=== PATIENT | male | born 1960 | race Caucasian/White ===

== ENCOUNTER 2019-02-05 23:48 | Inpatient (IN) ==
[2019-02-05] MEDS ORDERED: SOLU-MEDROL IV ONE (23:59)
[2019-02-06] MEDS ORDERED: ATROVENT NEB INH ONE ×2 (00:03→01:14)
[2019-02-06] MEDS ORDERED: MAGNESIUM SULFATE 2 GM/S.W.I. 2 GM/50 ML IVPB IV ONE (00:03)
--- NOTE | 2019-02-06 00:05 | PROVIDER DOCUMENTATION ---
HPI-Respiratory General - General Chief Complaint: Allergic Reaction Stated Complaint: sob Time Seen by Provider: 02/06/19 00:00 Source: patient Allergies/Adverse Reactions: Patient Allergies Allergy/AdvReac Type Severity Reaction Status Date / Time No Known Allergies Allergy Verified 02/06/19 00:00 Home Medications: Home Medication List Medication Instructions Recorded Confirmed Last Taken Type PRAVAstatin [Pravachol] 40 mg PO QHS 12/14/12 01/28/19 12/13/12 20:00 History Ciprofloxacin HCl [Cipro] 500 mg PO BID #20 tab 01/27/19 Unknown Rx Phenazopyridine [Pyridium] 100 mg PO TID #30 tab 01/27/19 Unknown Rx Amlodipine [Norvasc] 10 mg PO QAM 01/28/19 01/28/19 Unknown History Aspirin [Becka Chewable Aspirin] 81 mg PO QAM 01/28/19 01/28/19 Unknown History Labetalol [Trandate] 100 mg PO BID 01/28/19 01/28/19 Unknown History Lisinopril 40 mg PO QAM 01/28/19 01/28/19 Unknown History Metformin [Glucophage] 500 mg PO BID 01/28/19 01/28/19 Unknown History - History of Present Illness-Resp Nature of Presenting Problem: 58 yr old M, with hx of COPD, presents after acute respiratory distress de veloped earlier this evening while he was cleaning out his cat's litter box with ammonia. The pt reports SOB, cough, no pain with inspiration. When he presented, the pt also reported he had been having difficulty with urination for the past week, noting it was very hard to void, and when he was able to, the urine was dark in color. Pt reports worsening lower suprapubic pain and fullness for the past week. Quality of Pain: reports: other (pt's pain is not respiratory in nature - he has suprapubic pain) Onset/Duration: reports: 1 hour ago Timing: reports: still present Current Respiratory Medication Therapy: Initiated A/A nebulizer Similar Symptoms Previously?: Yes (remote hx of similar respiratory event) Review of Systems - Adult - REVIEW OF SYSTEMS - ADULT Constitutional: reports: no symptoms reported Eyes: reports: no symptoms reported Ears, Nose, Mouth & Throat: reports: no symptoms reported Cardiovascular: reports: no symptoms reported Respiratory: reports: cough, shortness of breath Gastrointestinal: reports: no symptoms reported Genitourinary: reports: hematuria, urinary retention Musculoskeletal: reports: no symptoms reported Integumentary: reports: no symptoms reported Neurological: reports: no symptoms reported Psychiatric: reports: no symptoms reported Past History - Adult - PAST MEDICAL HISTORY-ADULT Review of Records: reports: Old Records Reviewed, Nursing Assessment Review Respiratory: reports: COPD Physical Exam-General - PHYSICAL EXAM-ADULT Initial Vital Signs Reviewed: Yes - CONSTITUTIONAL General Appearance: alert, moderate distress, anxious - HEAD, EARS, NOSE, MOUTH & THROAT HENMT: normocephalic/atraumatic - RESPIRATORY Respiratory: decreased breath sounds, other (difficult to appreciate air entry bilaterally) - CARDIOVASCULAR Cardiovascular: tachycardia - GASTROINTESTINAL (ABDOMEN) Abdominal Exam: tenderness (suprapubic) - SKIN Integumentary: diaphoresis - PSYCHIATRIC Psych/Mental Status: oriented x 3, anxious - HEART Score HEART Score: History: Slightly Suspicious HEART Score: Age: 45-65 Years HEART Score: Risk Factors for Atherosclerotic Disease: 1 or 2 Risk Factors HEART Score: Troponin: < or = Normal Limit Progress - PLAN OF CARE/RESULTS Progress/Plan/Lab Results: Vital Signs - 8 hr 02/05/19 23:59 02/06/19 00:01 02/06/19 00:03 Pulse Rate Respiratory Rate Blood Pressure 144/101 156/135 O2 Sat by Pulse Oximetry 85 L 95 97 02/06/19 00:29 Pulse Rate 99 H Respiratory Rate 22 Blood Pressure O2 Sat by Pulse Oximetry 98 Laboratory Results - last 24 hr 02/06/19 02/06/19 02/06/19 00:19 00:19 01:01 WBC 26.38 H RBC 5.04 Hgb 13.4 L Hct 42.4 MCV 84.1 MCH 26.6 L MCHC 31.6 L RDW Std Deviation 14.9 H Plt Count 472 H MPV 11.2 H Immature Gran % (Auto) 7.4 H Neut % (Auto) 78.9 H Lymph % (Auto) 6.6 L [place] % (Auto) 6.4 Eos % (Auto) 0.4 Baso % (Auto) 0.3 Immature Gran # (Auto) 1.96 H Neut # (Auto) 20.79 H Lymph # (Auto) 1.75 [place] # (Auto) 1.70 H Eos # (Auto) 0.10 Baso # (Auto) 0.08 Segmented Neutrophils 80 H Band Neutrophils 4 H Lymphocytes 11 L Monocytes 2 Eosinophils 2 Metamyelocytes 1.0 PT INR PTT (Actin FS) Specimen Type Sample Site pH pCO2 pO2 HCO3 Base Excess Oxyhemoglobin ABG O2 Sat (Calculated) ABG O2 Saturation ABG Carboxyhemoglobin ABG Methemoglobin Greg Test VBG pH VBG pCO2 VBG pO2 VBG HCO3 VBG O2 Saturation VBG Base Excess VBG Lactate A-a O2 Difference Total Hemoglobin Lactate Blood Gas Modality FiO2 % Sodium Potassium Chloride Carbon Dioxide Anion Gap BUN Creatinine Estimated GFR/1.73 m2 BUN/Creatinine Ratio Glucose Calculated Osmolality Calcium Magnesium Total Bilirubin AST ALT Alkaline Phosphatase Creatine Kinase Creatine Kinase Index CK-MB (CK-2) Troponin T Total Protein Albumin Globulin Albumin/Globulin Ratio Plasma Lactate Urine Source CATH Urine Color BROWN Urine Turbidity TURBID Urine pH 5.5 Ur Specific [place] 1.013 Urine Protein 50 A Ur Glucose (Stick) NEGATIVE Ur Ketones (Stick) NEGATIVE Urine Blood MODERATE A Urine Nitrite NEGATIVE Urine Bilirubin NEGATIVE Urobilinogen Dipstick NORMAL Urine Leukocytes TRACE A Urine WBC (Auto) 10-20 A Urine RBC (Auto) TNTC A U Epithel Cells (Auto) <10 Urine Bacteria (Auto) NEGATIVE Urine Crystals NONE SEEN Small Round Cells NONE SEEN Urine Casts NONE SEEN Urine Yeast-like Cells NONE SEEN Urine Opiates Screen NONE DETECTED Ur Oxycodone Screen NONE DETECTED Ur Methadone, Qual NONE DETECTED Ur Barbiturates Screen NONE DETECTED Ur Phencyclidine Scrn NONE DETECTED Ur Amphetamines Screen NONE DETECTED U Benzodiazepines Scrn NONE DETECTED Urine Cocaine Screen NONE DETECTED U Cannabinoids Screen NONE DETECTED Blood Type Antibody Screen 02/06/19 02/06/19 02/06/19 01:01 01:01 01:01 WBC RBC Hgb Hct MCV MCH MCHC RDW Std Deviation Plt Count MPV Immature Gran % (Auto) Neut % (Auto) Lymph % (Auto) [place] % (Auto) Eos % (Auto) Baso % (Auto) Immature Gran # (Auto) Neut # (Auto) Lymph # (Auto) [place] # (Auto) Eos # (Auto) Baso # (Auto) Segmented Neutrophils Band Neutrophils Lymphocytes Monocytes Eosinophils Metamyelocytes PT 17.7 H INR 1.43 PTT (Actin FS) 33.0 Specimen Type Sample Site pH pCO2 pO2 HCO3 Base Excess Oxyhemoglobin ABG O2 Sat (Calculated) ABG O2 Saturation ABG Carboxyhemoglobin ABG Methemoglobin Greg Test VBG pH VBG pCO2 VBG pO2 VBG HCO3 VBG O2 Saturation VBG Base Excess VBG Lactate A-a O2 Difference Total Hemoglobin Lactate Blood Gas Modality FiO2 % Sodium 136 Potassium 7.3 H* Chloride 88 L Carbon Dioxide 3 L Anion Gap 45 BUN 142 H Creatinine 15.6 H* Estimated GFR/1.73 m2 3 BUN/Creatinine Ratio 9 Glucose 92 Calculated Osmolality 315 Calcium 7.9 L Magnesium 2.4 Total Bilirubin 0.23 AST 17 ALT 20 Alkaline Phosphatase 66 Creatine Kinase 431 H Creatine Kinase Index 3.1 H CK-MB (CK-2) 13.55 H Troponin T < 0.010 Total Protein 6.9 Albumin 4.4 Globulin 2.5 Albumin/Globulin Ratio 1.8 Plasma Lactate Urine Source Urine Color Urine Turbidity Urine pH Ur Specific [place] Urine Protein Ur Glucose (Stick) Ur Ketones (Stick) Urine Blood Urine Nitrite Urine Bilirubin Urobilinogen Dipstick Urine Leukocytes Urine WBC (Auto) Urine RBC (Auto) U Epithel Cells (Auto) Urine Bacteria (Auto) Urine Crystals Small Round Cells Urine Casts Urine Yeast-like Cells Urine Opiates Screen Ur Oxycodone Screen Ur Methadone, Qual Ur Barbiturates Screen Ur Phencyclidine Scrn Ur Amphetamines Screen U Benzodiazepines Scrn Urine Cocaine Screen U Cannabinoids Screen Blood Type Antibody Screen 02/06/19 02/06/19 02/06/19 01:01 01:01 01:10 WBC RBC Hgb Hct MCV MCH MCHC RDW Std Deviation Plt Count MPV Immature Gran % (Auto) Neut % (Auto) Lymph % (Auto) [place] % (Auto) Eos % (Auto) Baso % (Auto) Immature Gran # (Auto) Neut # (Auto) Lymph # (Auto) [place] # (Auto) Eos # (Auto) Baso # (Auto) Segmented Neutrophils Band Neutrophils Lymphocytes Monocytes Eosinophils Metamyelocytes PT INR PTT (Actin FS) Specimen Type ARTERIAL Sample Site R RADIAL pH 6.81 L* pCO2 17 L* pO2 115 H HCO3 0.8 L Base Excess -30.9 L Oxyhemoglobin 95.8 ABG O2 Sat (Calculated) 18.6 ABG O2 Saturation 97.8 ABG Carboxyhemoglobin 1.10 ABG Methemoglobin 0.9 Greg Test YES VBG pH VBG pCO2 VBG pO2 VBG HCO3 VBG O2 Saturation VBG Base Excess VBG Lactate A-a O2 Difference 13.0 Total Hemoglobin 13.7 Lactate 11.50 H* Blood Gas Modality ROOM AIR FiO2 % 21.0 Sodium Potassium Chloride Carbon Dioxide Anion Gap BUN Creatinine Estimated GFR/1.73 m2 BUN/Creatinine Ratio Glucose Calculated Osmolality Calcium Magnesium Total Bilirubin AST ALT Alkaline Phosphatase Creatine Kinase Creatine Kinase Index CK-MB (CK-2) Troponin T Total Protein Albumin Globulin Albumin/Globulin Ratio Plasma Lactate 11.0 H* Urine Source Urine Color Urine Turbidity Urine pH Ur Specific [place] Urine Protein Ur Glucose (Stick) Ur Ketones (Stick) Urine Blood Urine Nitrite Urine Bilirubin Urobilinogen Dipstick Urine Leukocytes Urine WBC (Auto) Urine RBC (Auto) U Epithel Cells (Auto) Urine Bacteria (Auto) Urine Crystals Small Round Cells Urine Casts Urine Yeast-like Cells Urine Opiates Screen Ur Oxycodone Screen Ur Methadone, Qual Ur Barbiturates Screen Ur Phencyclidine Scrn Ur Amphetamines Screen U Benzodiazepines Scrn Urine Cocaine Screen U Cannabinoids Screen Blood Type A POSITIVE Antibody Screen NEGATIVE 02/06/19 02:29 WBC RBC Hgb Hct MCV MCH MCHC RDW Std Deviation Plt Count MPV Immature Gran % (Auto) Neut % (Auto) Lymph % (Auto) [place] % (Auto) Eos % (Auto) Baso % (Auto) Immature Gran # (Auto) Neut # (Auto) Lymph # (Auto) [place] # (Auto) Eos # (Auto) Baso # (Auto) Segmented Neutrophils Band Neutrophils Lymphocytes Monocytes Eosinophils Metamyelocytes PT INR PTT (Actin FS) Specimen Type VENOUS Sample Site pH pCO2 pO2 HCO3 Base Excess Oxyhemoglobin ABG O2 Sat (Calculated) ABG O2 Saturation ABG Carboxyhemoglobin ABG Methemoglobin Greg Test VBG pH 6.83 L* VBG pCO2 23 L VBG pO2 92 H VBG HCO3 1.8 L VBG O2 Saturation 96.8 H VBG Base Excess -29.5 L VBG Lactate 12.30 H* A-a O2 Difference Total Hemoglobin Lactate Blood Gas Modality FiO2 % Sodium Potassium Chloride Carbon Dioxide Anion Gap BUN Creatinine Estimated GFR/1.73 m2 BUN/Creatinine Ratio Glucose Calculated Osmolality Calcium Magnesium Total Bilirubin AST ALT Alkaline Phosphatase Creatine Kinase Creatine Kinase Index CK-MB (CK-2) Troponin T Total Protein Albumin Globulin Albumin/Globulin Ratio Plasma Lactate Urine Source Urine Color Urine Turbidity Urine pH Ur Specific [place] Urine Protein Ur Glucose (Stick) Ur Ketones (Stick) Urine Blood Urine Nitrite Urine Bilirubin Urobilinogen Dipstick Urine Leukocytes Urine WBC (Auto) Urine RBC (Auto) U Epithel Cells (Auto) Urine Bacteria (Auto) Urine Crystals Small Round Cells Urine Casts Urine Yeast-like Cells Urine Opiates Screen Ur Oxycodone Screen Ur Methadone, Qual Ur Barbiturates Screen Ur Phencyclidine Scrn Ur Amphetamines Screen U Benzodiazepines Scrn Urine Cocaine Screen U Cannabinoids Screen Blood Type Antibody Screen Orders Category Date Time Status Cardiac Monitoring DIRECTED Care 02/06/19 00:38 Active Agudelo Cath Insertion ORDERED Care 02/06/19 00:20 Active IV Insertion ORDERED Care 02/06/19 00:38 Active Notify MD of + Sepsis Screen NOW Care 02/06/19 00:38 Active Notify Physician As Ordered Care 02/06/19 00:38 Active Straight Catheterization ORDERED Care 02/06/19 00:03 Active CHEST-2 VIEWS [RAD] Stat Exams 02/06/19 00:[address] ABDOMEN/PELVIS W/O CONTRAST [CT] Stat Exams 02/06/19 00:[address] THORAX W/O CONTRAST [CT] Stat Exams 02/06/19 01:46 Taken ABG [RESP] Routine Lab 02/06/19 01:10 Completed BLOOD CULTURE [BLDCUL] Stat Lab 02/06/19 01:55 Results CBC WITH DIFF [HEME] Stat Lab 02/06/19 01:01 Completed CK PROFILE [SP CHEM] Stat Lab 02/06/19 01:01 Completed COMPREHENSIVE METABOLIC PANEL [CHEM] Stat Lab 02/06/19 01:01 Completed LACTATE, PLASMA [CHEM] Lab 02/06/19 01:01 Completed LACTATE, PLASMA [CHEM] Lab 02/06/19 03:45 Uncollected LACTATE, PLASMA [CHEM] Lab 02/06/19 06:45 Uncollected MAGNESIUM [CHEM] Stat Lab 02/06/19 01:01 Completed PROTIME WITH INR [COAG] Stat Lab 02/06/19 01:01 Completed PTT [COAG] Stat Lab 02/06/19 01:01 Completed TROPONIN T Stat Lab 02/06/19 01:01 Completed TYPE & SCREEN [BBK] Stat Lab 02/06/19 01:01 Completed URINALYSIS W/POSS RFLX CULT [URINALYSIS] Stat Lab 02/06/19 00:19 Completed URINE CULTURE [RM] Routine Lab 02/06/19 01:14 Received URINE DRUG SCREEN Stat Lab 02/06/19 00:19 Completed URINE MANUAL MICROSCOPIC [URINALYSIS] Stat Lab 02/06/19 00:19 Completed VBG [VENOUS BLOOD GAS] [RESP] Routine Lab 02/06/19 02:29 Completed 0.9% Sodium Chloride Inj [Ns] 1,000 ml Med 02/06/19 01:12 Discontinued IV 999 mls/hr Albuterol 0.5% INH Conc [Albuterol 0.5% INH Conc For Med 02/06/19 02:46 Discontinued Hyperkalemia] 25 mg INH NOW ONE Albuterol [Albuterol Neb] Med 02/06/19 02:45 Discontinued 10 mg INH NOW ONE Calcium Gluconate Med 02/06/19 02:44 Discontinued 1 gm IV PUSH NOW ONE Dextrose 5%-Water Inj [D5w] 1,000 ml Med 02/06/19 01:30 Active Sodium Bicarbonate 8.4% 100 meq IV 200 mls/hr Dextrose 50% Syringe [D50w Syringe] Med 02/06/19 02:32 Discontinued 50 ml IV NOW ONE Diphenhydramine [Benadryl] Med 02/06/19 01:55 Discontinued 50 mg IV NOW ONE Hydromorphone [Dilaudid] Med 02/06/19 01:01 Discontinued 2 mg IV NOW ONE Insulin Human Regular [Humulin R] Med 02/06/19 02:33 Discontinued 10 unit IV NOW ONE Ipratropium [place] Neb [Atrovent Neb] Med 02/06/19 01:14 Discontinued 0.5 mg INH NOW ONE Ipratropium [place] Neb [Atrovent Neb] Med 02/06/19 00:03 Discontinued 1 mg INH NOW ONE Magnesium Sulfate 2 gm/S.w.i. Med 02/06/19 00:03 Discontinued 2 gm in 50 ml IV NOW Methylprednisolone Sod Succ [Solu-Medrol] Med 02/05/19 23:59 Discontinued 125 mg IV NOW ONE Morphine Med 02/06/19 02:05 Discontinued 2 mg IV NOW ONE Piperacillin/Tazobactam [Zosyn] 3.375 gm Med 02/06/19 02:01 Discontinued 0.9% Sodium Chloride Inj [Ns] 50 ml IV NOW Sodium Bicarbonate 8.4% Med 02/06/19 01:32 Discontinued 50 meq .ROUTE .STK-MED ONE Sodium Bicarbonate 8.4% Med 02/06/19 01:29 Discontinued 50 meq IV PUSH NOW ONE Sodium Bicarbonate 8.4% Med 02/06/19 01:36 Discontinued 50 meq IV PUSH NOW ONE Tamsulosin [Flomax] Med 02/06/19 00:52 Discontinued 0.4 mg PO NOW ONE Vancomycin 1 gm/Ns Med 02/06/19 02:01 Discontinued 1 gm in 250 ml IV NOW Aerosol Treatments Routine Ot 02/06/19 00:04 Completed Aerosol Treatments Routine Ot 02/06/19 02:46 Active Aerosol Treatments Routine Ot 02/06/19 02:46 Active Aerosol Treatments Stat Ot 02/06/19 00:04 Completed Aerosol Treatments Stat [facility] 02/06/19 02:46 Active Aerosol Treatments Stat [facility] 02/06/19 02:46 Active Oxygen Device Stat Ot 02/06/19 00:38 Active neb [Aerosol Treatments] Stat Ot 02/06/19 01:14 Completed EKG [EKG] Stat Ther 02/06/19 02:31 Ordered Pt has received three additional treatments in the ED with only minimal reported improvement. Pt received 2 gm Mag Sulfate and ABG shows ph 6.8, CO2 17, HCO3 0.8; WBC 26; intermittent catheterization expressed 1,850 mL of dark, cola- colored urine, UA has RBCs. Giving pt 2 AMPS of sodium bicarbonate; one bolus of NS. Additional bolus of D5W NS with 100 meQ sodium bicarbonate; labs show severe abnormalities - acute kidney failure, with BUN/Cr of 142/15.6, K 7.3. Spoke with Dr. Arredondo, who accepts admission; spoke with Dr. Palumbo who recommends D50W, 10 units regular insulin, and albuterol neb 25 mg for addressing hyperkalemia. VBG shows pH 6.83, lactate 12. CT abdomen shows lesion on left kidney and renal cyst on right kidney. Pt is aware of the plan. Result Diagrams: 02/06/19 01:01 02/06/19 01:01 - EKG 1 Time of EKG reading by physician:: 03:10 EKG Read and Signed by:: Yanira Michel EKG Interpretation (*Must complete 3 of following elements*): Abnormal Rate: 122 Rhythm: siuns tachycardia Tilly: normal QRS: RBB (incomplete), LVH PA Interval: normal ST Wave: non-specific ST changes Prior EKG Comparison: no prior EKG - XRAY 1 XRAY Study: Chest Impression: See EMR Report - CT/MRI 1 CT Study: Abdomen, Pelvis Impression: See EMR Report CT Results: Lesion and renal cyst on left kidney; enlarged prostate, hydronephrosis - CONSULTS/PCP/HOSPITALIST Notification #1 *Consult/PCP/Hospitalist*: Dr. Arredondo Time Discussed: 02:30 Consult Disposition: Admit Departure - Departure Date of Disposition Decision: 02/06/19 Time of Disposition Decision: 02:54 DIAGNOSIS: Hematuria, Leukocytosis, SOB (shortness of breath), Sepsis Disposition: ADMITTED INPATIENT 09 Certified Medical Emergency: Emergent Condition: Serious Referrals and Follow-Ups: Sidney Mccormick Jr, MD [Primary Care Provider] - - Critical Care Note This patient required my direct & personal management of CC.: Yes Total Time (mins): 75 Critical Care Statement: This patient required my direct personal management to treat or rule out processes, the absence of which, could potentiallly result in sudden, clinically significant life or limb threatening deterioration. Attestation - Physician/ JASBIR Attestation Patient care was provided by Advanced Practice Provider:: No The physician spent face to face time with patient:: Yes Advanced Practice Provider documentation review:: Supervising physician onsite and consulted in the evaluation and care of this patient. The physician did have a face to face encounter with the patient.
[2019-02-06 00:46] LABS: URINE SOURCE CATH
[2019-02-06] MEDS ORDERED: FLOMAX PO ONE (00:52)
[2019-02-06 00:57] LABS: BILIRUBIN URINE NEGATIVE (NEGATIVE); BLOOD URINE MODERATE (NEGATIVE); COLOR BROWN; GLUCOSE URINE NEGATIVE (NEGATIVE); KETONE URINE NEGATIVE (NEGATIVE); LEUKOCYTES URINE TRACE (NEGATIVE); NITRITE URINE NEGATIVE (NEGATIVE); PH URINE 5.5; PROTEIN URINE 50 mg/dL (NEGATIVE); SP GRAVITY URINE 1.013; TURBIDITY URINE TURBID (CLEAR); UR EPITHELIAL CELLS <10 /HPF (<10); URINE BACTERIA NEGATIVE /HPF; URINE RBC TNTC /HPF (<10); UROBILINOGEN URINE NORMAL (NORMAL)
[2019-02-06] MEDS ORDERED: DILAUDID IV ONE (01:01)
[2019-02-06] MEDS ORDERED: NS 1,000 ML IV ONE (01:12)
[2019-02-06 01:19] LABS: ALLEN TEST YES; BE -30.9 mmoll (-3.0-3.0); BLOOD TYPE ARTERIAL; HCO3-(ACT) 0.8 mmoll (20.0-26.0); METHB 0.9 % (0.0-1.5); O2(CT) 18.6 mL/dL (15.0-23.0); O2HB 95.8 % (95.0-99.0); PO2(98.6) 115 mmHg (60-100); SAMPLE BLOOD; SAO2 97.8 % (95.0-100.0); THB 13.7 g/dL (11.5-17.4)
[2019-02-06 01:19] LABS: URINE CASTS NONE SEEN; URINE CRYSTALS NONE SEEN; URINE SMALL ROUND CELLS NONE SEEN; URINE YEAST NONE SEEN
[2019-02-06 01:21] LABS: MODALITY ROOM AIR; PCO2(98.6) 17 mmHg (35-45); pH(98.6) 6.81 (7.35-7.45)
[2019-02-06] MEDS ORDERED: SODIUM BICARBONATE 8.4% IV PUSH ONE ×3 (01:29→06:47)
[2019-02-06] MEDS ORDERED: SODIUM BICARBONATE 8.4% 100 MEQ in D5W 1,000 ML IV SCH (01:30)
[2019-02-06] MEDS ORDERED: SODIUM BICARBONATE 8.4% ONE (01:32)
[2019-02-06 01:36] LABS: BASO# 0.08 X1000 (0.0-0.2); BASO% 0.3 % (0.0-0.8); EOS% 0.4 % (0.0-10.0); HEMATOCRIT 42.4 % (42.0-52.0); HEMOGLOBIN 13.4 g/dL (14.0-18.0); IMM GRAN# 1.96 X1000 (0.0-0.04); IMM GRAN% 7.4 % (0.0-0.5); LYMPH# 1.75 X1000 (1.2-3.4); LYMPH% 6.6 % (20.5-51.1); MCH 26.6 PG (27-31); MCHC 31.6 g/dL (33-37); MCV 84.1 FL (81-99); MONO% 6.4 % (1.7-9.3); MPV 11.2 FL (7.4-10.4); NEUT# 20.79 X1000 (1.4-6.5); NEUT% 78.9 % (42.2-75.2); PLT 472 X1000 (130-400); RBC 5.04 XMIL (4.7-6.1); RDW 14.9 % (11.5-14.5); WBC 26.38 X1000 (4.8-10.8)
[2019-02-06 01:36] LABS: UR AMPHETAMINES QUAL NONE DETECTED (NONE DETECT); UR BARBITUATES QUAL NONE DETECTED (NONE DETECT); UR BENZODIAZEPIN QUAL NONE DETECTED (NONE DETECT); UR CANNABINOIDS QUAL NONE DETECTED (NONE DETECT); UR COCAINE QUAL NONE DETECTED (NONE DETECT); UR METHADONE QUAL NONE DETECTED (NONE DETECT); UR OPIATES QUAL NONE DETECTED (NONE DETECT); UR OXYCODONE QUAL NONE DETECTED (NONE DETECT); UR PCP QUAL NONE DETECTED (NONE DETECT)
[2019-02-06 01:44] LABS: INR 1.43; PROTIME 17.7 Seconds (11.0-16.0)
[2019-02-06] MEDS ORDERED: BENADRYL IV ONE (01:55)
[2019-02-06] MEDS ORDERED: ZOSYN 3.375 GM in NS 50 ML IV ONE (02:01)
[2019-02-06] MEDS ORDERED: VANCOMYCIN 1 GM/NS 1 GM/250 ML IVPB IV ONE (02:01)
[2019-02-06 02:23] LABS: BANDS 4 % (0-1); EOS 2 % (1-10); LYMPHS 11 % (21-51); MONO 2 % (1-9); SEGS 80 % (42-75)
[2019-02-06 02:25] LABS: ALB/GLOB RATIO 1.8; ALBUMIN 4.4 g/dL (3.5-5.0); CALCIUM 7.9 mg/dL (8.8-10.2); MAGNESIUM 2.4 mg/dL (1.5-2.7); TOTAL BILIRUBIN 0.23 mg/dL (0.20-1.00); TOTAL PROTEIN 6.9 g/dL (6.3-8.3)
[2019-02-06 02:28] LABS: CREATININE 15.6 mg/dL (0.7-1.2); POTASSIUM 7.3 mmol/L (3.5-5.1)
[2019-02-06] MEDS ORDERED: D50W SYRINGE IV ONE (02:32)
[2019-02-06] MEDS ORDERED: HUMULIN R IV ONE (02:33)
[2019-02-06 02:37] LABS: BE -29.5 mmoll (-2.0-2.0); BLOOD TYPE VENOUS; HCO3-(ACT) 1.8 mmoll (22-27); PCO2(98.6) 23 mmHg (40-60); PO2(98.6) 92 mmHg (30-55); SAMPLE BLOOD; SAO2 96.8 % (40.0-85.0)
[2019-02-06 02:40] LABS: pH(98.6) 6.83 (7.32-7.43)
[2019-02-06 02:42] LABS: CK INDEX 3.1 (0.0-2.5); CK-MB 13.55 ng/mL (0.0-5.0)
[2019-02-06] MEDS ORDERED: CALCIUM GLUCONATE IV PUSH ONE (02:44)
[2019-02-06] MEDS ORDERED: ALBUTEROL NEB INH ONE (02:45)
[2019-02-06] MEDS ORDERED: ALBUTEROL 0.5% INH CONC FOR HYPERKALEMIA INH ONE (02:46)
[2019-02-06] MEDS: MORPHINE IV ONE ×2 (02:52→03:31)
[2019-02-06] MEDS ORDERED: NS 1,000 ML IV SCH (03:41)
[2019-02-06] MEDS ORDERED: TYLENOL PO PRN (03:41)
[2019-02-06] MEDS ORDERED: ZOFRAN IV PRN (03:41)
[2019-02-06] MEDS ORDERED: KAYEXALATE PO ONE (03:41)
--- NOTE | 2019-02-06 04:05 | EKG Report ---
Test Performed on : 02/06/2019 03:10:35 AM Test Reason : CP Blood Pressure : / mmHG Vent. Rate : 122 BPM Atrial Rate : 122 BPM P-R Int : 144 ms QRS Dur : 110 ms QT Int : 338 ms P-R-T Axes : 027 -10 094 degrees QTc Int : 481 ms Sinus tachycardia. Possible Left atrial enlargement Incomplete right bundle branch block Left ventricular hypertrophy Inferior infarct (cited on or before 23-MAR-2010) ST & T wave abnormality, consider lateral ischemia Abnormal ECG When compared with ECG of 08-JUN-2010 19:36, Incomplete right bundle branch block is now present Questionable change in initial forces of Inferior leads Unconfirmed Result
[2019-02-06] MEDS: HEPARIN SUBQ SCH ×2 (04:16→15:40)
--- NOTE | 2019-02-06 04:49 | HISTORY AND PHYSICAL ---
PRIMARY CARE PHYSICIAN: Dr. Mccormick. CHIEF COMPLAINT: Shortness of breath. HISTORY OF PRESENTING ILLNESS: A 58-year-old male with a history of coronary artery disease and hypertension had presented to the emergency department with a 1-day history of having worsening shortness of breath. The patient states that he was having difficulty breathing patient states that this happened while he was cleaning his cat litter box with ammonia. He was evaluated in the emergency department. He was found to be in respiratory failure. He was put on supplemental oxygen. He was also found to be in kidney failure and possibly septic. The patient initially presented with hypotension. He was given IV fluids and he had some improvement. His hyperkalemia also was stabilized in the ED. Due to his presenting symptoms, he will require ICU admission for further management. At the time of my examination, he was somewhat sluggish, but he denied any fever, chills, chest pain, or any weight changes but complained of shortness of breath and not feeling well. PAST MEDICAL HISTORY: Includes hypertension, coronary artery disease. PAST SURGICAL HISTORY: Coronary bypass. ALLERGIES: No known drug allergies. CURRENT MEDICATIONS: He does not recall and nursing staff will reconcile. SOCIAL HISTORY: No history of smoking, alcohol or illicit drug use. FAMILY HISTORY: No history of coronary artery disease. REVIEW OF SYSTEMS: Fourteen point review of system as listed in HPI. Other systems negative. PHYSICAL EXAMINATION: GENERAL: The patient is having some mild to moderate respiratory distress. He is currently on supplemental oxygen. VITAL SIGNS: Pulse 99, respirations 22, blood pressure was 81/54. HEENT: Atraumatic, normocephalic. PERRLA. NECK: No masses. CHEST: Rhonchi. CARDIOVASCULAR: Regular rate and rhythm. ABDOMEN: Soft. Positive bowel sounds. Some right flank tenderness. EXTREMITIES: No edema. NEUROLOGIC: He is awake, alert, oriented x1. GENITOURINARY: No bladder distention. SKIN: Warm. LABORATORIES AND STUDIES: WBCs 26.38, hemoglobin 13.4, hematocrit 42.4, platelets 472,000. Blood gas shows a pH of 6.81, pCO2 of 17, PO2 of 115. Sodium 136, potassium 7.3, chloride 88, CO2 is 3, BUN is 142, creatinine is 15.6, glucose 92, plasma lactate 11.0. CT of the abdomen and pelvis without shows right hydronephrosis with perinephric inflammatory changes. ASSESSMENT: This is a 58-year-old male with a history of hypertension and coronary artery disease who had presented to emergency department 1-day history of having worsening shortness of breath and not feeling well. He was evaluated in the emergency department. He was found to be hyperkalemic and also acidotic. He was put on supplemental oxygen. His hyperkalemia was treated in the ED with insulin, calcium gluconate and albuterol nebulizers. He is also started on IV antibiotics. Due to his presenting symptoms, he will require ICU admission. 1. Acute respiratory failure. 2. Metabolic acidosis. 3. Acute kidney injury. 4. Hyperkalemia. 5. Sepsis with hypotension and leukocytosis. 6. Possible pyelonephritis. 7. Coronary artery disease. PLAN: 1. We will admit patient to ICU. 2. Put patient on supplemental oxygen. 3. We will continue with IV fluids and consult Nephrology. 4. The patient's hyperkalemia was treated in the ED. We will continue with also Kayexalate. 5. Check blood cultures. Continue on IV antibiotics. 6. We will continue to monitor patient on telemetry. 7. We will put patient on DVT prophylaxis with heparin. 8. We will continue to follow, and reassess and make further recommendation based on patient's clinical course. The patient's condition is guarded. cc: Christiano Arredondo MD
[2019-02-06 06:09] LABS: ALLEN TEST YES; BE -29.4 mmoll (-3.0-3.0); BLOOD TYPE ARTERIAL; METHB 0.4 % (0.0-1.5); O2(CT) 16.5 mL/dL (15.0-23.0); O2HB 97.6 % (95.0-99.0); PO2(98.6) 128 mmHg (60-100); SAMPLE BLOOD; SAO2 99.4 % (95.0-100.0); THB 11.9 g/dL (11.5-17.4)
[2019-02-06 06:13] LABS: pH(98.6) 6.88 (7.35-7.45)
[2019-02-06 06:14] LABS: MODALITY ROOM AIR; PCO2(98.6) 13 mmHg (35-45)
[2019-02-06 06:17] LABS: URINE SOURCE CATH
[2019-02-06 06:26] LABS: BILIRUBIN URINE NEGATIVE (NEGATIVE); BLOOD URINE MODERATE (NEGATIVE); COLOR ORANGE; GLUCOSE URINE NEGATIVE (NEGATIVE); KETONE URINE 20 mg/dL (NEGATIVE); LEUKOCYTES URINE NEGATIVE (NEGATIVE); NITRITE URINE NEGATIVE (NEGATIVE); PROTEIN URINE 50 mg/dL (NEGATIVE); SP GRAVITY URINE 1.014; TURBIDITY URINE TURBID (CLEAR); UR EPITHELIAL CELLS <10 /HPF (<10); URINE BACTERIA NEGATIVE /HPF; URINE RBC TNTC /HPF (<10); URINE WBC <10 /HPF (<10); UROBILINOGEN URINE NORMAL (NORMAL)
[2019-02-06] MEDS: HUMULIN R SUBQ SCH ×4 (06:31→20:53)
[2019-02-06] MEDS: SODIUM BICARBONATE 8.4% 100 MEQ in STERILE WATER INJ. 1,000 ML IV SCH ×3 (07:12→20:52)
[2019-02-06] MEDS ORDERED: VANCOMYCIN IV PER PHARMACY MISC SCH (07:45)
[2019-02-06] MEDS ORDERED: LEVOPHED 8 MG in D5 1/2 NS 250 ML IV SCH (07:45)
[2019-02-06] MEDS ORDERED: SODIUM BICARBONATE 8.4% 100 MEQ in STERILE WATER INJ. 1,000 ML IV SCH (08:00)
[2019-02-06 08:03] LABS: CALCIUM 6.4 mg/dL (8.8-10.2); POTASSIUM 5.5 mmol/L (3.5-5.1)
[2019-02-06] MEDS ORDERED: CALCIUM GLUCONATE 4.65 MEQ in NS 50 ML IV ONE (08:06)
--- NOTE | 2019-02-06 08:08 | Diag Imaging Result Doc PS360 ---
EXAM: CHEST-2 VIEWS INDICATION: SOB TECHNIQUE: 2 views COMPARISON: 06/08/2010 FINDINGS: Lung volumes are very low. Otherwise, the lungs appear to be grossly clear. There is no discrete pleural fluid collection or pneumothorax. There are CABG changes and cardiomegaly. There is central vascular crowding due to the poor inspiration. It is possible there is a component of mild pulmonary venous congestion. IMPRESSION: Low lung volumes, cardiomegaly, and central vascular crowding with a possible component of mild pulmonary venous congestion. Electronically signed by Reese Romero 02/06/2019 8:05 AM
--- NOTE | 2019-02-06 08:34 | NEPHROLOGY CONSULTATION ---
DATE: 02/06/2019 REASON FOR CONSULTATION: Acute kidney injury, hyperkalemia, metabolic acidosis. CONSULTING PHYSICIAN: Dr. Michel HISTORY OF PRESENT ILLNESS: A 58-year-old white male with coronary disease, diabetes, hypertension, hyperlipidemia. He came to the emergency room at this facility 10 days ago complaining of blood in his urine and pain. He had normal white count, normal creatinine, normal chemistries. Urine was turbid with red blood cells and white blood cells and he was treated with ciprofloxacin as well as antispasmodic agent. Since that time, he has been progressively worse with increasing shortness of breath. He is awake and alert but he has difficulty relating the history. He states he has been taking all of his normal medications routinely in addition to his antibiotics. No chills or fevers. No cough or sputum. Markedly short of breath. No vomiting or diarrhea. His evaluation in the emergency room found him to be acutely ill with tachycardia and tachypnea. He suffered moderate hypotension as well. His initial data found marked metabolic acidosis, hyperkalemia and acute kidney injury. Agudelo catheter was placed with 5 L of urine output. CT of the abdomen demonstrated hydronephrosis on the right at least. Other abnormalities await official read from Radiology. He was treated for his hyperkalemia and his metabolic acidosis, volume resuscitation, pressors antibiotics. I discussed all these things with Dr. Michel by telephone last night. No EKG changes were related. PAST MEDICAL HISTORY: As above. HOME MEDICATIONS: Include 1. Metformin 500 mg b.i.d. 2. Pravastatin. 3. Ciprofloxacin. 4. Pyridium. 5. Aspirin. 6. Labetalol. 7. Amlodipine. 8. Lisinopril. ALLERGIES: None. SOCIAL HISTORY: He is . He has 1 daughter who we tried to contact by phone but were unsuccessful during my exam with him. FAMILY HISTORY: Otherwise noncontributory. REVIEW OF SYSTEMS: Otherwise noncontributory. PHYSICAL EXAMINATION: Vital Signs: Blood pressure 100/53, heart rate 125, respirations 24, afebrile. General: Acutely ill white male with Kussmaul breathing. Skin: Warm and dry. No rashes, bruises, ecchymoses. Conjunctivae are pink. Pupils are equal. Oropharynx is clear, dry. Neck: Supple. Neck veins are not distended. Trachea is midline. Heart: PMI is hyperdynamic. Auscultation demonstrates a regular rhythm. Tachycardia. No gallops or murmurs. Lungs: Have equal breath sounds. No crackles or wheezes. Abdomen: Soft, nontender, nondistended. Bowel sounds are diminished. No organomegaly, masses, bruits. Extremities: Have trace edema around the hips. No clubbing or cyanosis. Neurologic: Grossly nonfocal. Again, he is fumbling with his phone and unable to a carry on a conversation though all of his answers are appropriate and he is oriented to person and place. IMPRESSION: Acute kidney injury complicated by hyperkalemia and metabolic acidosis. I expect that his acute kidney injury is related to obstruction, and he had 5 L of urine output recorded by Agudelo catheter. His creatinine went from 15 to 11 over the first 6 hours of his hospitalization. However, he has ongoing severe metabolic acidosis with anion gap of 40 and his last measured lactate was 13. I am concerned that he has metformin-induced lactic acidosis and therefore a dialysis is indicated emergently in order to manage this complication. He is on IV bicarbonate drip and IV vasopressor agents, empiric broad-spectrum antibiotics. All this is appropriate. Continue Agudelo catheter and resuscitation. SLED today with a 3 potassium bath and 37 bicarbonate with minimal UF to start. cc: Wilbur Goodwin MD
--- NOTE | 2019-02-06 08:35 | Diag Imaging Result Doc PS360 ---
EXAM: CT ABDOMEN/PELVIS W/O CONTRAST INDICATION: abdominal pain TECHNIQUE: This exam was performed using automated exposure control, adjustment of mA or kV according to patient size, and/or use of iterative reconstruction technique. COMPARISON: None. FINDINGS: There is excessive motion artifact throughout the entire study, which may limit sensitivity and specificity. There is cardiomegaly and trace atelectasis at the lung bases. The gallbladder, liver, spleen, pancreas, and adrenal glands are grossly unremarkable by unenhanced CT. There are a couple of cyst density lesions associated with the right kidney. There are a few nodules associated with the left kidney that are hyperdense. It is possible these represent cysts containing blood products. However, they are indeterminate. Correlation with contrast-enhanced CT is recommended if not contraindicated. Otherwise, at least in evaluation with ultrasound is recommended. The largest of these lesions measures up to 3.6 x 3.1 cm axially. The right renal collecting system is slightly larger than the left. This is of unknown acuity and could be chronic. No discrete obstructing stones are identified throughout the ureters. The urinary bladder is grossly unremarkable. The prostate is enlarged measuring up to 6.5 cm in the greatest dimension. The appendix is probably identified and appears normal. The GI tract is grossly unremarkable, otherwise, given the limitations of severe motion artifact. No free abdominal gas or significant free fluid is identified. IMPRESSION: 1.Somewhat limited study due to excessive motion artifact. 2.A few indeterminate hyperdense nodules associated with the left kidney. Please see above discussion. 3.Slightly prominent right renal collecting system of unknown acuity. Note that no obstructing stones are identified. Electronically signed by Reese Romero 02/06/2019 8:32 AM
[2019-02-06] MEDS: ZOSYN 3.375 GM in NS 50 ML IV SCH ×3 (08:37→20:53)
--- NOTE | 2019-02-06 08:43 | Diag Imaging Result Doc PS360 ---
EXAM: CT THORAX W/O CONTRAST INDICATION: SOB TECHNIQUE: This exam was performed using automated exposure control, adjustment of mA or kV according to patient size, and/or use of iterative reconstruction technique. COMPARISON: None. FINDINGS: There is excessive respiratory motion artifact, which may limit sensitivity and specificity. There is minimal subsegmental atelectasis versus scarring at the anterior right lung base. Otherwise, the lungs are grossly clear given the limitations of significant motion artifact. There is no discrete pleural fluid collection and no pneumothorax. There is cardiomegaly. There is coronary artery calcification and there are CABG changes. There is no evidence of significant mediastinal or hilar lymphadenopathy. Please see separate CT abdomen and pelvis report performed at the same time for details of indeterminate hypodense left renal nodules. IMPRESSION: 1.Limited study due to excessive motion artifact. 2.Trace atelectasis versus scarring at the anterior right lung base. 3.Other incidental/nonacute findings detailed above. No definite acute chest pathology as imaged. Electronically signed by Reese Romero 02/06/2019 8:40 AM
[2019-02-06] MEDS ORDERED: NS 2,000 ML MISC PRN (09:58)
--- NOTE | 2019-02-06 10:45 | OPERATIVE NOTE ---
PROCEDURE DATE: 02/06/2019 INDICATIONS: Mr. Ascencion Bauman is a 58-year-old white male in our ICU with acute renal failure requiring urgent hemodialysis. We were asked to place access. DESCRIPTION OF PROCEDURE: The patient was placed supine in his bed ICU 3. His head was turned to the left. His right neck, shoulder, and anterior chest were prepped and draped in a sterile field. We used local anesthetic on the skin. I used an 18-gauge needle under ultrasound guidance to access the right internal jugular vein. Through the needle, I placed a guidewire into the right side of the heart. The needle was removed. I placed a dilator over the guidewire into the superior vena cava and then I used a Trialysis catheter over the guidewire into the superior vena cava. All 3 ports were functioning and were flushed with saline, and I secured the catheter to the skin with two 3-0 nylon stitches followed by dressing. We will get a portable chest x-ray for placement so that he can be dialyzed today. cc: Sandra Avila MD
[2019-02-06 11:53] LABS: ALLEN TEST YES; BE -14.7 mmoll (-3.0-3.0); BLOOD TYPE ARTERIAL; HCO3-(ACT) 13.5 mmoll (20.0-26.0); METHB 0.9 % (0.0-1.5); O2(CT) 16.5 mL/dL (15.0-23.0); PO2(98.6) 114 mmHg (60-100); SAMPLE BLOOD; SAO2 98.8 % (95.0-100.0); pH(98.6) 7.34 (7.35-7.45)
[2019-02-06 11:55] LABS: MODALITY CANNULA; PCO2(98.6) 16 mmHg (35-45)
--- NOTE | 2019-02-06 12:11 | Diag Imaging Result Doc PS360 ---
EXAM: CHEST-PORTABLE INDICATION: vas cath placement TECHNIQUE: One view COMPARISON: 02/06/2019 FINDINGS: The newly placed Vas-Cath is identified. The tip projects over the lower SVC near the atriocaval junction in the expected position. There is improved inspiration as compared to the previous study. There is no evidence of pneumothorax status post central line placement. Otherwise, the chest is stable. IMPRESSION: Interval placement of right Vas-Cath with no evidence of pneumothorax. Electronically signed by Reese Romero 02/06/2019 12:09 PM
--- NOTE | 2019-02-06 14:13 | PROGRESS NOTE ---
DATE: 02/06/2019 Patient admitted with profound, life-threatening lactic acidosis, kidney failure, hyperkalemia. Initial concern was for septic shock with lactic acidosis, but CT chest, abdomen, pelvis and other initial studies have not really shown any clear sign of infection. Given degree of lactic acidosis and kidney failure without clear inciting infection, we favor metformin induced lactic acidosis. The patient does endorse poor p.o. intake for the preceding few days. Suspect he got dehydrated, developed acute kidney injury, and subsequently went into metformin induced lactic acidosis and kidney failure. The patient has now obtained a vascular line by Dr. Avila with surgery, and patient is now being dialyzed. ABG partway through dialysis already seems to be improving rapidly. On initial evaluation, the patient had increased work of breathing, was diaphoretic. His respiratory rate remains elevated but is significantly improved on subsequent re-evaluation partway through his dialysis. ABG also shows markedly improved pH and lactate trending back down. Potassium still a little high but much improved from previous. Continuing antibiotics for now, but if he continues to show no sign of infection, then we will likely discontinue that in the next day or two. Blood pressure did drop low enough for us to have to start pressors with Levophed early this morning, but suspect as dialysis goes on his blood pressure will improve, and we will be able to wean him off that pressor. Holding blood pressure and diabetes medication. Continue to monitor closely in ICU with serial ABGs and chemistries. 40 minutes critical care time spent immediately available to the patient, reviewing labs, making medical decisions, examining the patient. NGUYỄN
--- NOTE | 2019-02-06 14:31 | Diag Imaging Result Doc PS360 ---
EXAM: US RENAL 2 (RETROPER) COMPLETE INDICATION: CHARLIE TECHNIQUE: COMPARISON: CT dated 02/06/2019. No prior renal ultrasound is available for comparison. FINDINGS: There are a couple of simple appearing right renal cysts with the largest measuring up to 5.9 cm. There is a cyst with sonographically simple echotexture measuring up to 4.9 cm associated with the left kidney. This corresponds to the hyperechoic nodule seen on CT indicating that it is a blood filled cyst. The two smaller hyperechoic foci seen on CT associated with the left kidney are not identified. However, they very likely also represent blood filled cysts. No solid renal mass or hydronephrosis is identified. The right kidney measures 13.9 cm and the left kidney measures 10.7 cm in the greatest longitudinal axes. Right renal cortex measures up to 1.4 cm and the left renal cortex measures up to 1.1 cm in thickness. There is a Agudelo catheter in the urinary bladder and the bladder is nondistended. IMPRESSION: Bilateral simple appearing renal cysts as described. Electronically signed by Reese Romero 02/06/2019 2:28 PM
[2019-02-06 14:33] LABS: ALBUMIN 3.6 g/dL (3.5-5.0); CALCIUM 7.6 mg/dL (8.8-10.2); CREATININE 2.9 mg/dL (0.7-1.2); PHOSPHORUS 1.8 mg/dL (2.7-4.5); POTASSIUM 3.1 mmol/L (3.5-5.1)
[2019-02-07] MEDS: SODIUM BICARBONATE 8.4% 100 MEQ in STERILE WATER INJ. 1,000 ML IV SCH ×2 (01:21→06:17)
[2019-02-07] MEDS: ZOSYN 3.375 GM in NS 50 ML IV SCH ×4 (03:31→20:24)
[2019-02-07] MEDS: HEPARIN SUBQ SCH (03:31)
[2019-02-07] MEDS: HUMULIN R SUBQ SCH ×3 (06:14→16:54)
[2019-02-07 06:27] LABS: BE 12.7 mmoll (-2.0-2.0); BLOOD TYPE VENOUS; HCO3-(ACT) 34.8 mmoll (22-27); PCO2(98.6) 44 mmHg (40-60); PO2(98.6) 79 mmHg (30-55); SAMPLE BLOOD; SAO2 98.4 % (40.0-85.0); pH(98.6) 7.53 (7.32-7.43)
[2019-02-07 07:03] LABS: AGAP 11; ALB/GLOB RATIO 1.4; ALBUMIN 3.2 g/dL (3.5-5.0); ALKALINE PHOSPHATASE 45 U/L (32-122); BUN 17 mg/dL (8-22); CALCIUM 7.5 mg/dL (8.8-10.2); CHLORIDE 98 mmol/L (98-107); COSMO 284; CREATININE 1.1 mg/dL (0.7-1.2); ESTIMATED GFR > 60; GLUCOSE 129 mg/dL (70-104); GOT 20 U/L (10-34); GPT 16 U/L (10-44); POTASSIUM 3.1 mmol/L (3.5-5.1); SODIUM 141 mmol/L (136-145); TCO2 32 mmol/L (25-35); TOTAL PROTEIN 5.5 g/dL (6.3-8.3)
[2019-02-07 07:12] LABS: EOS# 0.01 X1000 (0.0-0.7); EOS% 0.1 % (0.0-10.0); HEMATOCRIT 32.6 % (42.0-52.0); HEMOGLOBIN 10.8 g/dL (14.0-18.0); IMM GRAN# 0.06 X1000 (0.0-0.04); IMM GRAN% 0.4 % (0.0-0.5); LYMPH# 1.44 X1000 (1.2-3.4); LYMPH% 10.4 % (20.5-51.1); MCH 26.3 PG (27-31); MCHC 33.1 g/dL (33-37); MCV 79.3 FL (81-99); MONO# 1.63 X1000 (0.11-0.59); MONO% 11.8 % (1.7-9.3); MPV 11.4 FL (7.4-10.4); NEUT# 10.65 X1000 (1.4-6.5); NEUT% 77.3 % (42.2-75.2); PLT 217 X1000 (130-400); RBC 4.11 XMIL (4.7-6.1); RDW 14.6 % (11.5-14.5); WBC 13.79 X1000 (4.8-10.8)
[2019-02-07 07:44] LABS: BANDS 2 % (0-1); LYMPHS 12 % (21-51); MONO 6 % (1-9); SEGS 80 % (42-75)
--- NOTE | 2019-02-07 09:14 | NEPHROLOGY PROGRESS NOTE ---
DATE: 02/07/2019 SUBJECTIVE: He is feeling much better today. Awake, alert, appropriate. He does not remember meeting me yesterday. OBJECTIVE: Vital Signs: Blood pressure 166/105, heart rate 118, respirations 21, temperature 99.2 degrees. T-max 99.5 degrees. General: No acute distress. Skin: Warm and dry. Oropharynx is clear. Neck: Neck veins are not distended. Neck is supple. Heart: Tachycardic and irregular. Lungs: Have equal breath sounds. No crackles or wheezes. Abdomen: Soft, nontender. Bowel sounds present. Extremities: No edema, clubbing or cyanosis. IMPRESSION: 1. Acute kidney injury. The official read of his CT scan said he was not obstructed but his creatinine continued to improve after dialysis yesterday and he has made 10 L of urine. I expect that he did have obstruction and pyelonephritis. Cultures are negative thus far. Continue current care. No dialysis. 2. Metabolic acidosis. Likely from metformin intoxication in the context of acute kidney injury. Resolved entirely. Continue to withhold metformin. No further dialysis. 3. Hyperkalemia, resolved. cc: Wilbur Goodwin MD
[2019-02-07 09:31] LABS: HEPATITIS PROFILE ACUTE SEE COMMENTS
[2019-02-07] MEDS: VANCOMYCIN 1 GM/NS 1 GM/250 ML IVPB IV SCH (11:10)
--- NOTE | 2019-02-07 11:37 | PROGRESS NOTE ---
DATE: 02/07/2019 INTERVAL HISTORY: The patient's tachypnea markedly improved after dialysis. Heart rate still a little high but sinus. The patient remains weak but otherwise largely asymptomatic at this point. Blood pressure markedly improved and no longer requiring pressors. REVIEW OF SYSTEMS: Twelve point review of systems negative except as per interval history. LABORATORY DATA: WBC 13.79, hemoglobin 10.8, hematocrit 32.6, platelets 217,000. Venous blood gas with pH 7.5, pCO2 44, PO2 79. Sodium 141, potassium 3.1, BUN 17, creatinine 1.1, glucose 116 to 129, lactate 1.0. OBJECTIVE: Vital Signs: T-max 99.6 degrees, pulse 122, respirations 22, blood pressure 161/100, O2 saturation 95% on 2 L by nasal cannula. General: No acute distress. HEENT: Normocephalic, atraumatic. Moist mucous membranes. No cervical adenopathy. Cardiovascular: Still a little tachycardic but regular. No murmurs noted. Pulmonary: Clear to auscultation bilaterally. Abdomen: Soft, nontender, nondistended. Bowel sounds a little decreased but present. Extremities: Peripheral pulses intact. No clubbing or cyanosis. Neurologic: Cranial nerves grossly intact. No focal deficits identified. Psychiatric: Normal mood and affect. Oriented to person, place, and time but not president. Does appear a little bit confused intermittently, but cooperative and conversant. Skin: No new rashes or lesions noted. Dialysis catheter in right neck ASSESSMENT AND PLAN: 1. Metformin-induced lactic acidosis. The patient presented with profound acidosis, pH down to 6.8, lactate of greater than 14. Significant kidney failure as well with markedly elevated creatinine. Initial concern was for septic shock, but no source of infection found thus far. Nephrology was brought on board and initiated dialysis yesterday. Post dialysis, the patient's pH was markedly improved. Most recent lactate on gas is down to 1.0. Nephrology tentatively planning for dialysis again today, but patient markedly improved. 2. Shock, likely related to #1, now resolved. Required pressors briefly just after admission but is now off pressors. 3. Acute kidney injury. Patient with creatinine of 15.6 on admission after dialysis yesterday. Creatinine down to 1.1. Possible dialysis again today and then will monitor kidney function. 4. Hyperkalemia, resolved with dialysis. Potassium actually slightly on the low side but will defer repletion to Nephrology. 5. Hypertension. Hypotensive on admission. Blood pressure is starting to climb a little bit now. We will monitor for today but if it continues to remain elevated, we will likely restart home Norvasc. 6. Hyperlipidemia. We will restart home pravastatin. 7. Diabetes. Holding the patient's home metformin. We will likely discontinue this indefinitely. Hemoglobin A1c 5, so likely fine to come off the metformin anyway. 8. Coronary artery disease. Monitoring off aspirin currently given hematuria and drop in blood counts, but will restart if those improve. 9. Anemia, hematuria. Suspect this is due to his significant acute kidney injury, but holding heparin and aspirin for now. Continue to monitor. No signs of clots, but if that occurs, then we will get Urology to see him or if hematuria persists once kidneys are improved a little.
[2019-02-07] MEDS ORDERED: NITROGLYCERIN TOP ONE (20:08)
[2019-02-08] MEDS: APRESOLINE IV PRN ×2 (00:18→05:01)
[2019-02-08] MEDS: HUMULIN R SUBQ SCH ×5 (00:21→21:29)
[2019-02-08] MEDS ORDERED: LOPRESSOR IV ONE (02:15)
[2019-02-08] MEDS: ZOSYN 3.375 GM in NS 50 ML IV SCH ×4 (03:20→21:36)
[2019-02-08 04:50] LABS: BASO# 0.01 X1000 (0.0-0.2); BASO% 0.1 % (0.0-0.8); EOS# 0.04 X1000 (0.0-0.7); EOS% 0.3 % (0.0-10.0); HEMATOCRIT 36.9 % (42.0-52.0); HEMOGLOBIN 11.9 g/dL (14.0-18.0); IMM GRAN# 0.03 X1000 (0.0-0.04); IMM GRAN% 0.3 % (0.0-0.5); LYMPH# 1.46 X1000 (1.2-3.4); LYMPH% 12.8 % (20.5-51.1); MCH 26.6 PG (27-31); MCHC 32.2 g/dL (33-37); MCV 82.4 FL (81-99); MONO# 1.58 X1000 (0.11-0.59); MONO% 13.8 % (1.7-9.3); MPV 11.4 FL (7.4-10.4); NEUT# 8.31 X1000 (1.4-6.5); NEUT% 72.7 % (42.2-75.2); PLT 204 X1000 (130-400); RBC 4.48 XMIL (4.7-6.1); RDW 14.7 % (11.5-14.5); WBC 11.43 X1000 (4.8-10.8)
[2019-02-08 05:00] LABS: AGAP 11; ALB/GLOB RATIO 1.1; ALBUMIN 2.9 g/dL (3.5-5.0); ALKALINE PHOSPHATASE 50 U/L (32-122); BUN 9 mg/dL (8-22); CALCIUM 7.4 mg/dL (8.8-10.2); CHLORIDE 101 mmol/L (98-107); COSMO 285; ESTIMATED GFR > 60; GLUCOSE 98 mg/dL (70-104); GOT 22 U/L (10-34); GPT 19 U/L (10-44); POTASSIUM 2.8 mmol/L (3.5-5.1); SODIUM 144 mmol/L (136-145); TCO2 32 mmol/L (25-35); TOTAL BILIRUBIN 0.49 mg/dL (0.20-1.00); TOTAL PROTEIN 5.5 g/dL (6.3-8.3)
[2019-02-08] MEDS ORDERED: POTASSIUM CHLORIDE 20% LIQUID PO ONE ×2 (07:07→11:00)
[2019-02-08] MEDS: LOPRESSOR PO SCH ×2 (08:15→21:36)
--- NOTE | 2019-02-08 09:52 | NEPHROLOGY PROGRESS NOTE ---
DATE: 02/08/2019 Subjective: he is awake lying in bed watching TV. He states he feels better today. He denies any shortness of breath, nausea and vomiting, change in appetite, or increased weakness. Objective: bottle signs temperature 98.8, pulse 131, respirations 21, blood pressure 116/81, 02 sat 96% on 2 L nasal cannula. General: elderly white male in no acute distress. Skin: warm and dry no rashes or lesions. Neck supple no jugular vein distention noted. Cardiovascular: tachycardic rate with dependent Estrella. Regular rhythm. No murmur noted. Lungs: clear bilaterally with equal excursion, No crackles or wheezes noted. Increased work of breathing noted. Abdomen: soft, nontender, nondistended. Bowel sounds present. Extremities: no Edema clubbing or cyanosis. Neurologic: alert and oriented to person place and time. Labs: WBC 11.43, RBC 4.48, hemoglobin 11.9, hematocrit 36.9, platelet count 204, sodium 144, potassium 2.8, chloride 101, carbon dioxide 32, anion gap 11, BUN 9, creatinine 1.0, estimated GFR greater than 60, calcium 7.4, albumin 2.9, proteins 5.5. Intake 1890, Output 6325. Impression: Acute kidney injury, resolved entirely. I will leave his Vas-Cath because the nursing staff is using it for access, but it can be removed whenever he gets other access or before discharge. There is some concern for bladder outlet obstruction. I recommend removing his Agudelo when he is up and moving around. If he has any problems with voiding , he will need to have his Agudelo replaced and see urology. We will sign off today. Electrolytes. Hypokalemia noted. Ordered IV potassium replacement. Acid base balance. Stable. Anemia. Stable. Blood pressure in goal. However, tachycardic could be related to beta shukri withdrawal. Will start Lopressor 5 mg IV now and lopressor 25 mg PO BID. cc: MD NGUYỄN Crow
[2019-02-08] MEDS: VANCOMYCIN 1 GM/NS 1 GM/250 ML IVPB IV SCH (11:23)
--- NOTE | 2019-02-08 12:12 | PROGRESS NOTE ---
DATE: 02/08/2019 SUBJECTIVE: This morning, Mr. Bauman refers to be doing well. Denies any new complaints. The daughter was at the bedside at the time of the encounter. OBJECTIVE: Vital Signs: Blood pressure is 116/81, pulse of 131, respirations are 21, patient is saturating 96%. General Examination: Mr. Bauman is a 59-year-old, gentleman. He is in bed. No distress. HEENT: Mucosa is pink and moist. Anicteric. Acyanotic. Neck: Supple. Chest: Good air entry bilaterally. Some diffuse faint end-expiratory wheezing in the posterior lung shaw. Cardiovascular: Regular rate and rhythm. Abdomen: Soft, nontender. Bowel sounds present. Extremities: No pedal edema. TIE HACKER: The patient is awake, alert, oriented. Does have some mild residual left-sided weakness from previous CVA. Laboratory Data: WBC is down to 13.43, hemoglobin is 11.9, platelet count of 204,000. Chemistry is also reviewed. Creatinine has completely normalized. Potassium is 2.8. Is and Os: Urine output 6325. He is currently negative balance of 5134. So far, the patient's blood cultures are reported still pending. The urine is no growth. Imaging Studies: Show interval placement of Vas-Cath. ASSESSMENT: 1. Acute kidney injury on presentation, presumably obstructive uropathy which has significantly improved. Nephrology is on board. 2. Obstructive uropathy associated with hematuria. The patient has a Agudelo catheter in place. Did refer to be having some issues in the past with voiding and also hematuria. Urology has been consulted. 3. Shock on presentation, improved. 4. History of cerebrovascular accident with mild left-sided hemiparesis noted. 5. Severe metabolic acidosis, presumably due to metformin-induced lactic acidosis. The patient has had sustained low-efficiency dialysis during the hospital course. PLAN: In general, I think Mr. Bauman seems to be doing well. So far, blood culture is still pending final report so we will keep the antibiotic going until we know if it is negative. We are going to transfer him from the ICU to a regular medical floor and get physical therapy to start working with him. We are going to replace his potassium and we will get urology to evaluate him for the obstructive uropathy with also hematuria. cc: Fred Kerr MD
--- NOTE | 2019-02-08 19:55 | CONSULTATION ---
DATE OF CONSULTATION: 02/08/2019 ATTENDING/REFERRING PHYSICIAN: Hospitalist. HISTORY OF PRESENT ILLNESS: This 59-year-old male was admitted with respiratory and acute renal failure. His respiratory status has improved markedly and he had one time of emergency dialysis. He states he is feeling better. He had a Agudelo catheter placed, a large amount of urine returned, and his creatinine level decreased. It is currently back to normal. The patient was last seen in the Urology Clinic in January 2017. He was followed there for elevated PSA's. His last PSA on record was 9.51. His 4K score had elevated risk for aggressive prostate cancer. The patient canceled his prostate ultrasound and biopsy. The patient states he has had no hematuria or problems with urinary infections. PAST MEDICAL HISTORY: Diabetes, peripheral vascular disease, status post CVA, coronary artery disease, hypertension. CURRENT MEDICATIONS: Documented on the chart and include Flomax that was recently started. PAST SURGICAL HISTORY: Coronary artery bypass grafting. SOCIAL HISTORY: He chews tobacco. No cigarette or alcohol use. ALLERGIES: No known drug allergies. He states he is feeling better. He denies any problems with seizures or recent bowel problems. He states he thought he was voiding well, but feels much better with the catheter in place. He was not taking any medication for his prostate before admission. PHYSICAL EXAMINATION: General: A normally developed, well-nourished, age apparent, white male, who is cooperative. HEENT: Normal with a vas cath in place in the right neck. Cardiovascular: Regular rate and rhythm. Abdomen: Mildly protuberant, soft, nontender. No hepatosplenomegaly or masses. Normal bowel sounds. Genitourinary: Normal male. Both testes down and palpably normal. No inguinal hernias. Agudelo catheter in place, draining clear urine. Rectal: Normal sphincter tone. Prostate of about 50 g, smooth, firm. Extremities: No clubbing, cyanosis, or edema. Neurologic: No focal deficits (mild weakness on the left side). LABORATORY DATA: CBC has a white count of 11.43, hemoglobin 11.9, hematocrit of 36.9, platelets are 204,000. Serum sodium is 144, potassium 2.8, chloride 101, bicarbonate 32, BUN 11, creatinine 9. His Agudelo catheter is in place, draining clear urine. He had 6300 mL out over the day. IMPRESSION: 1. Patient with multiple medical problems with acute renal failure probably due to urinary retention. 2. History of elevated PSA to 9.51 two years ago. 3. Enlarged prostate with obstructive voiding. RECOMMENDATIONS: 1. Continue Flomax 0.4 mg a day. 2. Keep Agudelo drainage for at least 7 days. 3. Will follow up in clinic for a voiding trial and to further discuss ultrasound and biopsy of the prostate. Discussed that could be done under anesthesia in the hospital if he desires. Thank you for this consultation. cc: Ridge Vickers MD
[2019-02-08] MEDS ORDERED: FLOMAX PO SCH (21:00)
[2019-02-08] MEDS: NORVASC PO SCH (21:36)
[2019-02-09] MEDS: ZOSYN 3.375 GM in NS 50 ML IV SCH ×2 (04:04→09:50)
[2019-02-09 05:18] LABS: BASO# 0.02 X1000 (0.0-0.2); BASO% 0.2 % (0.0-0.8); EOS# 0.39 X1000 (0.0-0.7); EOS% 3.7 % (0.0-10.0); HEMOGLOBIN 11.7 g/dL (14.0-18.0); IMM GRAN# 0.03 X1000 (0.0-0.04); IMM GRAN% 0.3 % (0.0-0.5); LYMPH# 1.73 X1000 (1.2-3.4); LYMPH% 16.4 % (20.5-51.1); MCHC 30.8 g/dL (33-37); MCV 84.4 FL (81-99); MONO# 0.88 X1000 (0.11-0.59); MONO% 8.4 % (1.7-9.3); MPV 11.3 FL (7.4-10.4); NEUT# 7.48 X1000 (1.4-6.5); PLT 206 X1000 (130-400); RDW 14.8 % (11.5-14.5); WBC 10.53 X1000 (4.8-10.8)
[2019-02-09 05:43] LABS: AGAP 10; ALB/GLOB RATIO 1.1; ALKALINE PHOSPHATASE 53 U/L (32-122); BUN 10 mg/dL (8-22); CALCIUM 7.8 mg/dL (8.8-10.2); CHLORIDE 104 mmol/L (98-107); COSMO 284; CREATININE 1.1 mg/dL (0.7-1.2); ESTIMATED GFR > 60; GLUCOSE 134 mg/dL (70-104); GOT 23 U/L (10-34); GPT 28 U/L (10-44); SODIUM 142 mmol/L (136-145); TCO2 28 mmol/L (25-35); TOTAL BILIRUBIN 0.39 mg/dL (0.20-1.00); TOTAL PROTEIN 5.7 g/dL (6.3-8.3)
[2019-02-09] MEDS: HUMULIN R SUBQ SCH ×3 (06:49→16:08)
[2019-02-09] MEDS: LOPRESSOR PO SCH (09:51)
[2019-02-09] MEDS: NORVASC PO SCH (09:51)
[2019-02-09] MEDS: VANCOMYCIN 1 GM/NS 1 GM/250 ML IVPB IV SCH (10:37)
[2019-02-09 15:49] VITALS: BP 169/94
[2019-02-09] MEDS ORDERED: FLU VACCINE IM ONE (16:39)
--- NOTE | 2019-02-10 06:03 | DISCHARGE SUMMARY ---
ADMISSION DATE: 02/06/2019 DISCHARGE DATE: 02/09/2019 DISPOSITION: Home. FOLLOW-UP: 1. Dr. Mccormick. 2. Dr. Vickers. CONSULTATIONS DURING ADMISSION: 1. Nephrology was consulted. Patient was seen by Dr. Goodwin. 2. Urology was consulted. Patient was seen by Dr. Vickers. 3. Surgery was consulted. Patient was seen by Dr. Avila. INVASIVE PROCEDURES DONE DURING THIS ADMISSION: Vas-Cath was put in by Dr. Avila. ADMISSION DIAGNOSES: 1. Acute respiratory failure. 2. Metabolic acidosis. 3. Acute kidney injury. 4. Hypotension with leukocytosis concerning for sepsis. 5. Possible pyelonephritis. DIAGNOSES AT TIME OF DISCHARGE: 1. Acute kidney injury on presentation secondary to obstructive uropathy improved. 2. Obstructive uropathy associated with hematuria and elevated PSA concerning for prostate adenocarcinoma. The obstruction was overcome with Agudelo catheter. Patient was seen by Dr. Vickers, and he will follow up with him during on an outpatient basis. 3. Shock on presentation, improved. Urine culture and blood cultures so far have been negative. Antimicrobials have been discontinued. 4. History of cerebrovascular accident with mild left-sided hemiparesis noted. 5. Severe metabolic acidosis on presentation, presumably due to metformin induced lactic acidosis, resolved with sled. 6. Hypertension controlled. 7. Elevated PSA with suspected prostate cancer. Patient will follow up with Dr. Vickers. Biopsies will be done hopefully on outpatient, and adequate treatment will be instituted accordingly. IMAGING STUDIES OF SIGNIFICANCE: A chest x-ray initially was unremarkable. A CT scan of the abdomen and pelvis initially did show slight prominent renal collecting system of unknown cause . A CT scan of the chest shows some atelectasis. A renal ultrasound showed bilateral simple appearing cyst. A repeat chest x-ray shows interval placement of Vas-Cath. No pneumothorax. DISCHARGE MEDICATIONS: 1. Pravastatin 40 mg p.o. at bedtime. 2. Cipro. 3. Pyridium. 4. Aspirin 81 mg p.o. daily. 5. Labetalol 100 mg b.i.d. 6. Amlodipine 10 mg p.o. every morning. 7. Lisinopril 40 mg p.o. daily. 8. Tamsulosin 0.4 p.o. at bedtime. PRESENTING COMPLAINT: Shortness of breath. HISTORY OF PRESENTING COMPLAINT: Mr. Pike is a 59-year-old gentleman with a history of previous CVA with mild left-sided hemiparesis and also coronary artery disease and hypertension, came to the emergency department because of difficulty breathing. Upon presenting, he was found to be in kidney failure and probably septic with hypotension. He was admitted to the medical floor for stabilization and critical care management. HOSPITAL COURSE: Mr. Pike was admitted to the ICU, and was started on broad-spectrum IV antibiotics and fluid resuscitated. A Agudelo catheter was placed in which out poured almost 6000 in the ensuing 24 hours. He underwent extensive urological evaluation. He was seen by Nephrology as well. The patient presented with a creatinine of 15.6, which gradually got normalized. At discharge, it was down to 1.1. Nephrology signed off. Mr. Pike was thought to have obstructive uropathy. Urology was consulted. The patient was seen by Dr. Vickers. Per his documentation, it appears that Mr. Pike used to see him before about 2 years ago, but just lost follow-up. In his note 2 years ago, Mr. Pike had a PSA of about 9. On repeat today, the PSA was 45.48. Mr. Pike seems to know that he had issues with his prostate before, but he just did not follow up. He has been advised to follow up because this is very highly suggestive of prostate cancer. Mr. Pike's metabolic derangements were all normalized. He was on metformin presumably for prediabetes. However, his A1c is 5.0 so we have discontinued that and have advised that he stay off any medication for glucose control at least for now. He is currently in more stable medical condition. His blood pressure 146/90 with a pulse of 73, respirations 18, and temperature 97.8 degrees. He is saturating 98% on 3 L. We think he is in stable condition for discharge. I have spoken extensively to the daughter on the phone, explained the discharge planning to her. We also stressed the need for Mr. Pike to follow up with Dr. Vickers. Mr. Pike is being discharged with a Agudelo catheter. We have explained the care that he needs to take of the Agudelo catheter, and the need that he follows up with Dr. Vickers to make a determination if he is going to need this on a long-term basis or other solutions will be arrived at. All the discharge instructions have been discussed with him. He voiced understanding. TIME SPENT FOR DISCHARGE: 40 minutes. cc: Fred Kerr MD [facility]ITALThais
[2019-02-11] MEDS ORDERED: VANCOMYCIN 1 GM/NS 1 GM/250 ML IVPB IV SCH (03:00)
== END 2019-02-09 16:54 | disposition home or self-care (01) | DRG 682 ==
LOC: SUPCPDRO → ED 23:48 → ICU 02-06 03:34 → SUATTDRO 02-06 03:34 → 1N 02-08 17:12
PROVIDERS: ATTEND Internal Medicine